=== PATIENT | female | born 1965 ===

== ENCOUNTER 2022-12-01 07:32 | Day surgery (SDC) | payer BC, SELFPAY ==
[2022-11-29 11:03] VITALS: BMI 28.3
[2022-12-01 07:47] VITALS: BP 125/74; PULSE 100; RESP 18; TEMP 36.3; O2SAT 100
--- NOTE | 2022-12-01 07:54 | W.PM.OPSFHP ---
Same Day Surgery H&P Indication for Procedure/HPI DATE OF PROCEDURE: December 01, 2022 CHIEF COMPLAINT/INDICATIONFOR SURGICAL PROCEDURE: need for screening colonoscopy PREOP DIAGNOSIS: screening for colorectal cancer, average risk PLANNED PROCEDURE: Operation Date: 12/01/22 08:10 Proposed Procedures p Colonoscopy 67058,Z12.11(Not Applicable) - Floyd Reyna MD Medications/Allergies* Home Medications Medication Instructions Recorded Confirmed Type levothyroxine 137 mcg tablet 137 mcg PO DAILY 10/19/22 12/01/22 History Allergies/Adverse Reactions Allergy/AdvReac Type Severity Reaction Status Date / Time No Known Allergies Allergy Unverified 10/19/22 11:04 Pertinent Exam Findings alert, oriented x 3, clear to auscultation bilaterally, regular rate & rhythm, operative site marked and procedure specific exam findings (abdomen soft and non tender) Recommendations Surgery/Procedure today Other Plans: After a complete history, physical examination and review of all available clinical data. I have offered screening colonoscopy as indicated by the current guidelines. I have discussed all the risks and benefits of the colonoscopy. Including, the risk of perforation requiring surgical intervention, rectal bleeding, incomplete colonoscopy requiring repeat procedure in 3 months, missed polyps, need for additional procedures. Patient shows understanding and wishes to proceed. Coding Level of Care Code Acute Code for Chg Fwd Diagnoses
[2022-12-01] MEDS: sodium chloride 0.9% 1,000 ML 30 ML IV (07:55)
--- NOTE | 2022-12-01 07:55 | ANES.PREANE2 ---
Pre-Anesthetic Assessment Height/Weight: Height 1.63 m Weight 74.843 kg Temp Pulse Resp BP Pulse Ox O2 Del Method 97.4 F L 100 18 125/74 100 Room Air 12/01/22 07:47 12/01/22 07:47 12/01/22 07:47 12/01/22 07:47 12/01/22 07:47 12/01/22 07:47 Preop Diagnosis: screening Operation Date: 12/01/22 08:10 Proposed Procedures p Colonoscopy 13577,Z12.11(Not Applicable) - Floyd Reyna MD Familial anesthetic complications: none Was Beta Shaan taken within 24 hours: N/A Was Clonidine taken within 24 hours: N/A Last intake: Intake Last Liquid Date 11/30/22 Last Liquid Time 22:00 Last Solid Date 11/29/22 Last Solid Time 19:30 Social No alcohol and No tobacco Exam alert and oriented x 3 Airway Submandibular: within normal limits Cervical ROM: within normal limits Mallampati: Class II History/ROS No significant history except as noted Metabolic Thyroid Disease Anesthetic Plan ASA status: 2 Anesthesia: Anesthesia Evaluation, General and MAC Medications/Allergies Home Medications Medication Instructions Recorded Confirmed Last Taken Type levothyroxine 137 mcg tablet 137 mcg PO DAILY 10/19/22 12/01/22 11/30/22 History Allergies Allergy/AdvReac Type Severity Reaction Status Date / Time No Known Allergies Allergy Unverified 10/19/22 11:04 Data Anesthesia Cardiac Studies: No Data to Display
[2022-12-01 08:32] VITALS: BP 97/67; PULSE 85; RESP 16; TEMP 36.1; O2SAT 95
--- NOTE | 2022-12-01 12:47 | ANE.PACU2 ---
Inpatient post-anesthesia follow up: Airway intact: Yes Vital signs: Temperature 97.0 F Pulse Rate 85 Respiratory Rate 16 Blood Pressure 97/67 Pulse Oximetry 95 Oxygen Delivery Me thod Room Air Oxygen Flow Rate Fraction of Inspir ed Oxygen Hydration adequate: Yes Nausea and vomiting: No Pain level: 2 Mental status: Baseline
== END 2022-12-01 09:10 | disposition home or self-care (01) ==
PROVIDERS: PCP Family Medicine; Visit Provider Surgery
PROC: 0DJD8ZZ Inspection of Lower Intestinal Tract, Via Natural or Artificial Opening Endoscopic (ICD-10-PCS; CPT 45378; principal; 2022-12-01 08:10)
DX: Z12.11 Encounter for screening for malignant neoplasm of colon (principal); K62.89 Other specified diseases of anus and rectum
CPT/HCPCS: 45380; 88305; J2704; J7030